=== PATIENT | female | born 1960 | race Caucasian/White ===

== ENCOUNTER → 2016-11-15 | Outpatient (CLI) | payer OTHER ==
--- NOTE | ~2016-11-15 | MY29 ---
[facility] A Service of [facility] RADIOLOGY TEXT RESULTS PATIENT: KOLE SEGOVIA LOCATION: [facility] : 60 UNIT #: [id number] AGE: [address]: Josh Pelletier MD SEX: F ORDER DR: [id number] [id number] [facility]. [place], [place] [address] [id number] O MR#: [id number] Acc #: [id number] NAME: KOLE SEGOVIA : 1960 SEX: F STUDY DATE/TIME: 11/15/2016 9:25 UNIT: [facility] ROOM: STUDY DESCRIPTION: MY YOLIE SCREENING W/ CAD BILAT Attending Physician: Josh Pelletier M.D. Referring Physician: Josh Pelletier M.D. Ordering Physician: Josh Pelletier M.D. Primary Care Physician: Josh Pelletier M.D. MEDICAL IMAGING REPORT This report is preliminary unless electronic signature is present EXAM Bilateral digital screening mammogram with CAD. DATE 11/15/2016 HISTORY 56-year-old female with a history of melanoma. No personal or family history of breast cancer or current complaints. COMPARISON Bilateral screening mammogram 05/13/2015, 02/05/2012. FINDINGS CC and MLO views were obtained of each breast utilizing digital technique and reviewed with an FDA-approved CAD device. Scattered fibroglandular densities are present bilaterally. No new or suspicious nodules are identified. Benign calcifications are scattered bilaterally, some of which appear dermal in location. No architectural distortion is seen. IMPRESSION BIRADS 2. Benign findings. Routine screening mammogram is recommended in year. Patients over the age of 40 are entered into a reminder system with target due date for the next mammogram. A result letter will also be sent to the patient. BIRADS: 2 Benign finding. [facility] A Service [facility] RADIOLOGY TEXT RESULTS PATIENT: KOLE SEGOVIA LOCATION: [facility] : 60 UNIT #: [id number] AGE: [address]: Josh Pelletier MD SEX: F ORDER DR: Dictated by... Kailey Bunch M.D. THIS IS AN ELECTRONICALLY VERIFIED REPORT Kailey Bunch M.D. at 11/16/2016 1:52 PM LAUREN/lokesh TD: 11/15/2016 12:13 JOB #: [id number] MEDICAL IMAGING REPORT Page 1 of 1 COPY
== END | disposition home or self-care (01) ==
LOC: CWCC 09:01
DX: Z12.31 Encounter for screening mammogram for malignant neoplasm of breast (principal)
CPT/HCPCS: G0202